=== PATIENT | female | born 1965 | race Caucasian/White ===

== ENCOUNTER 2019-12-05 19:46 | Emergency (ER) | payer SELFPAY ==
--- OUTSIDE RECORDS SUMMARY | 2019-12-05 19:49 | XMS REPORT | Continuity of Care Document ---
:1965 Author Organization [facility] t Address [address] [place] [id number] Care Team Providers Name Role Phone Garret Echevarria Attending Clinician Problems This patient has no known problems. Allergies, Adverse Reactions, Alerts This patient has no known allergies or adverse reactions. Medications This patient has no known medications. Procedures This patient has no known procedures. Encounters Start End Encounter Admission Attending Care Care Encounter Source Date/Time Date/Time Type Type Clinicians Facility Department ID 2019-10-31 2019-10-31 Emergency Joan [facility] [id number] 15:50:46 17:30:00 Terell Manzanares [id number] [place] [id number] [place] [id number] Results This patient has no known results.
--- OUTSIDE RECORDS SUMMARY | 2019-12-05 19:49 | XMS REPORT | Summary of Care ---
:1965 Author Organization [facility] Address [address] [place] [id number] Care Team Providers Name Role Phone Pcp, Does Not Have A Primary Care Provider Reason for Referral (Routine) Status Reason Specialty Diagnoses / Referred By Referred To Procedures Contact Contact New Request ORT-ORTHOPAEDIC Diagnoses Sprain of left shoulder, unspecified shoulder sprain type, initial encounter Terell Franco, SURGERY Procedures Discharge Follow-Up: Specialty Service ORT-ORTHOPAEDIC SURGERY; 1 Week DEMO COORDINATOR [address] [place] [address] Radiology Services (STAT) Status Reason Specialty Diagnoses / Referred By Referred To Procedures Contact Contact New Request Diagnostic Diagnoses Fall, initial encounter Terell Franco, Radiology Procedures XR SHOULDER 2+ VW LEFT DEMO COORDINATOR [address] [place] [address] Reason for Visit Reason Comments Shoulder Pain left Auth/Cert Status Reason Specialty Diagnoses / Referred By Referred To Procedures Contact Contact Emergency Medicine Adc Em ergency Dept [address] [facility] [place] [address] Fax: Encounter Details Date Type Department Care Team Description 10/31/2019 Emergency ADC-Emergency Terell Franco , DEMO COORDINATOR Sprain of left shoulder, unspecified gee ulder sprain type, initial encounter (Primary Dx); Department [address] [facility] Fall, initial encounter [address] [facility] [address] [place], [place] [phone] Allergies No Known Allergiesdocumented as of this encounter (statuses as of 10/31/2019) Medications No known medicationsdocumented as of this encounter (statuses as of 10/31/2019) Active Problems No known active problemsdocumented as of this encounter (statuses as of 10/31/2019) Social History Tobacco Use Types Packs/Day Years Used Date Never Assessed Sex Assigned at Date Recorded Not on file Job Start Date Occupation Industry Not on file Not on file Not on file Travel History Travel Start Travel End No recent travel history available. COVID-19 Exposure Response Date Recorded In the last month, have you been in contact with No / Unsure 10/31/2019 3:42 PM CDT someone who was confirmed or suspected to have Coronavirus / COVID-19? documented as of this encounter Last Filed Vital Signs Vital Sign Reading Time Taken Comments Blood Pressure 152/72 10/31/2019 3:48 PM CDT Pulse 73 10/31/2019 3:48 PM CDT Temperature 37.1 C (98.8 F) 10/31/2019 3:48 PM CDT Respiratory Rate 18 10/31/2019 3:48 PM CDT Oxygen Saturation 98% 10/31/2019 3:48 PM CDT Inhaled Oxygen Concentration - - Weight 81.6 kg (180 lb) 10/31/2019 3:48 PM CDT Height 160 cm (5' 3") 10/31/2019 3:48 PM CDT Body Mass Index 31.89 10/31/2019 3:48 PM CDT documented in this encounter Discharge Instructions InstructionsTerell Franco, DEMO COORDINATOR - 10/31/2019DIAGNOSIS 1. Shoulder Pain NO LIFE-THREATENING FINDINGS ON TODAY'S EXAM. RECOMMEND FOLLOW-UP WITH A PRIMARY CARE PROVIDER OR SPECIALIST IN 2-5 DAYS, ESPECIALLY IF NO IMPROVEMENT IN SYMPTOMS. MAY FOLLOW-UP WITH A PROVIDER OF YOUR CHOICE, SUCH : 1. A PHYSICIAN OF YOUR CHOICE 2. [address] [place] [address]; [phone] 3. [facility], [address] [place] [address]; [phone] OR, IF YOU WISH TO FOLLOW-UP WITHIN THE [facility], MAY TRY THESE OPTIONS (CLINIC APPOINTMENTS AVAILABLE ON [id number] BASIS): 1. SCHEDULE AN APPOINTMENT ONLINE AT [facility] 2. OR CALL THE [facility] AT OR 3. OR CALL YOUR [facility] PHYSICIAN'S OFFICE DIRECTLY IF YOU ARE ALREADY AN ESTABLISHED [facility] PATIENT. RETURN TO ER FOR WORSENING OF SYMPTOMS. AttachmentsThe following attachments cannot be sent through Care Everywhere. Shoulder Sprain ([place])documented in this encounter Plan of Treatment Name Type Priority Associated Diagnoses Date/Ti me XR SHOULDER 2+ VW LEFT IMAGING STAT Fall, initial enco unter 10/31/2019 4:19 PM CDT Health Maintenance Due Date Last Done Comments HEPATITIS C (HCV) SCREEN 1965 DTaP,Tdap,and Td Vaccines (1 - 1974 Tdap) PAP SMEAR 1984 Breast Cancer Screening 2003 (MAMMOGRAM) COLONOSCOPY 2013 Zoster Recombinant Vaccine 2013 (SHINGRIX) (1 of 2) INFLUENZA VACCINE (Season Ended) 2020 PNEUMOCOCCAL 0-64 YEARS COMBINED Aged Out No longer eligible based on SERIES patient's age to complete this topic documented as of this encounter Procedures Procedure Name Priority Date/Time Associated Diagnosis Comme nts XR SHOULDER 2+ VW LEFT STAT 10/31/2019 4:19 PM Fall, initi al encounter CDT Procedure Note - [facility], [place] Results Inft User - 10/31/2019 5:12 PM CDT EXAM: XR SHOULDER 2+ VW LEFT HISTORY: fall COMPARISON: None FINDINGS: Radiographs of the left shou lder demonstrate no acute fracture or dislocation. Alignment is ma intained. The soft tissues are unremarkable. The visualized lungs are yusef ar. IMPRESSION No acute bony abnormality. Preliminary Report Dictated by Resident: Maximo Sullivan documented in this encounter Results Not on filedocumented in this encounter Visit Diagnoses Diagnosis Sprain of left shoulder, unspecified gee ulder sprain type, initial encounter - Primary Fall, initial encounter documented in this encounter documented as of this encounter
[2019-12-05 21:10] LABS: Absolute Lymphocytes (CBC) 1.9 K/uL (0.7-4.9); Basophils % 1.2 % (0-1.3); Hematocrit 38.1 % (36.0-45.0); Lymphocytes % 29.2 % (15.3-44.8); MPV 9.5 fL (7.6-11.3); RBC Red Blood Cell Count 4.35 M/uL (3.86-4.86)
[2019-12-05 21:11] LABS: Barbiturates NEGATIVE (NEGATIVE); Benzodiazepines NEGATIVE (NEGATIVE); Cocaine NEGATIVE (NEGATIVE); METHAMPHETAM NEGATIVE (NEGATIVE); Methadone NEGATIVE (NEGATIVE); Opiates NEGATIVE (NEGATIVE); Phencyclidine NEGATIVE (NEGATIVE); THC Cannibis NEGATIVE (NEGATIVE)
[2019-12-05 21:19] LABS: ALT/SGPT 27 U/L (12-78); AST/SGOT 24 U/L (15-37); Albumin 3.4 g/dL (3.4-5.0); Alkaline Phosphatase 95 U/L (45-117); BUN Blood Urea Nitrogen 13 mg/dL (7-18); Bicarbonate 27 mmol/L (21-32); Bilirubin Direct < 0.1 mg/dL (0-0.2); Bilirubin Total 0.2 mg/dL (0.2-1.0); Glucose Level 93 mg/dL (74-106); Potassium 3.5 mmol/L (3.5-5.1); Protein, Total 7.4 g/dL (6.4-8.2); Sodium Level 142 mmol/L (136-145)
[2019-12-05] MEDS ORDERED: ACETAMINOPHEN 500 MG TAB ONE (21:27)
[2019-12-05] MEDS ORDERED: NA CHLORIDE 0.9% 1,000 ML ONE (22:21)
[2019-12-05 23:31] LABS: Urine Blood NEGATIVE (NEG); Urine Glucose NEGATIVE (NEG); Urine Protein NEGATIVE (NEG); Urine Specific Gravity >1.030 (1.005-1.030); Urine pH 5.5 (5.0-7.0)
--- NOTE | 2019-12-05 23:31 | EDPHYS ---
Physician Documentation [facility] Name: Tammy Dutta Age: 54 yrs Sex: Female : 1965 Arrival Date: 12/05/2019 Time: 19:51 Bed 13 Private MD: ED Physician Miquel Dietrich HPI: 12/04 20:31 This 54 yrs old Female presents to ER via Ambulatory with complaints of Back mh7 Pain,. 20:31 The patient presents with pain that is acute, with no known mechanism of injury. The mh7 symptoms are located in the low back. Onset: The symptoms/episode began/occurred 3 day(s) ago. The pain does not radiate. Associated signs and symptoms: Pertinent negatives: abdominal pain, chest pain, constipation, dysuria, fever, headache, hematuria, incontinence, nausea, numbness, tingling, urinary retention, vomiting, weakness. The problem was sustained from unknown cause. Modifying factors: The patient symptoms are alleviated by OTC meds, aspirin, the patient symptoms are aggravated by nothing. Severity of symptoms: At their worst the symptoms were moderate, yesterday, in the emergency department the symptoms have improved, moderately. Historical: - Allergies: 20:03 No Known Allergies; ll1 - PSHx: 20:03 Tubal ligation; ll1 - Immunization history:: Flu vaccine is not up to date. - Social history:: Smoking status: Patient denies any tobacco usage or history of. Patient uses alcohol, only on a social basis. Patient/guardian denies using street drugs. ROS: 20:31 Constitutional: Negative for fever, chills, and weight loss, Eyes: Negative for injury, mh7 pain, redness, and discharge, ENT: Negative for injury, pain, and discharge, Neck: Negative for injury, pain, and swelling, Cardiovascular: Negative for chest pain, palpitations, and edema, Respiratory: Negative for shortness of breath, cough, wheezing, and pleuritic chest pain, Abdomen/GI: Negative for abdominal pain, nausea, vomiting, diarrhea, and constipation, : Negative for injury, bleeding, discharge, and swelling, MS/Extremity: Negative for injury and deformity, Skin: Negative for injury, rash, and discoloration, Neuro: Negative for headache, weakness, numbness, tingling, and seizure, Psych: Negative for depression, anxiety, suicide ideation, homicidal ideation, and hallucinations, Allergy/Immunology: Negative for hives, rash, and allergies, Endocrine: Negative for neck swelling, polydipsia, polyuria, polyphagia, and marked weight changes, Hematologic/Lymphatic: Negative for swollen nodes, abnormal bleeding, and unusual bruising. Exam: 20:31 Constitutional: This is a well developed, well nourished patient who is awake, alert, mh7 and in no acute distress. Head/Face: Normocephalic, atraumatic. Eyes: Pupils equal round and reactive to light, extra-ocular motions intact. Lids and lashes normal. Conjunctiva and sclera are non-icteric and not injected. Cornea within normal limits. Periorbital areas with no swelling, redness, or edema. Neck: Trachea midline, no thyromegaly or masses palpated, and no cervical lymphadenopathy. Supple, full range of motion without nuchal rigidity, or vertebral point tenderness. No Meningismus. Chest/axilla: Normal chest wall appearance and motion. Nontender with no deformity. No lesions are appreciated. Cardiovascular: Regular rate and rhythm with a normal S1 and S2. No gallops, murmurs, or rubs. Normal PMI, no JVD. No pulse deficits. Respiratory: Lungs have equal breath sounds bilaterally, clear to auscultation and percussion. No rales, rhonchi or wheezes noted. No increased work of breathing, no retractions or nasal flaring. Abdomen/GI: Soft, non-tender, with normal bowel sounds. No distension or tympany. No guarding or rebound. No evidence of tenderness throughout. 20:31 Skin: Warm, dry with normal turgor. Normal color with no rashes, no lesions, and no evidence of cellulitis. MS/ Extremity: Pulses equal, no cyanosis. Neurovascular intact. Full, normal range of motion. Neuro: Awake and alert, GCS 15, oriented to person, place, time, and situation. Cranial nerves II-XII grossly intact. Motor strength 5/5 in all extremities. Sensory grossly intact. Cerebellar exam normal. Normal gait. Psych: Awake, alert, with orientation to person, place and time. Behavior, mood, and affect are within normal limits. 20:31 Back: pain, that is mild, of the left mid back, ROM is painless, normal spinal alignment noted, CVA tenderness, that is mild, is noted on the left, vertebral tenderness, is not appreciated, muscle spasm, is not present, Straight leg raises: of both lower extremities does not illicit pain. Vital Signs: 19:59 BP 131 / 78; Pulse 73; Resp 17; Temp 97.9; Pulse Ox 100% ; Pain 0/10; ll1 21:00 BP 127 / 68; Pulse 55; Resp 17; Pulse Ox 99% on R/A; vc 22:00 BP 123 / 68; Pulse 53; Resp 18; Pulse Ox 100% on R/A; vc 12/05 00:00 BP 122 / 68; Pulse 56; Resp 18; Pulse Ox 100% on R/A; vc MDM: 12/04 20:29 Patient medically screened. [facility] 23:27 Differential diagnosis: Abdominal Aortic Aneurysm arthritis, chronic back pain, [facility] Osteoarthritis Pyelonephritis Ureterolithiasis UTI. Data reviewed: vital signs, nurses notes, lab test result(s), CBC, electrolytes, urinalysis, radiologic studies, CT scan. Data interpreted: Pulse oximetry: on room air is 100 %. Interpretation: normal. Counseling: I had a detailed discussion with the patient and/or guardian regarding: the historical points, exam findings, and any diagnostic results supporting the discharge/admit diagnosis, lab results, radiology results, the need for outpatient follow up, to return to the emergency department if symptoms worsen or persist or if there are any questions or concerns that arise at home. Response to treatment: the patient's symptoms have markedly improved after treatment. 12/04 20:30 Order name: Basic Metabolic Panel; Complete Time: 21:23 [facility] 12/04 21:57 Interpretation: GFR 74. [facility] 12/04 20:30 Order name: CBC with Diff; Complete Time: 21:23 [facility] 12/04 20:30 Order name: Hepatic Function; Complete Time: 21:23 [facility] 12/04 20:30 Order name: UDS; Complete Time: 21:23 [facility] 12/04 20:58 Order name: Urine Dipstick--Ancillary (enter results) 3 12/04 21:57 Order name: CT Abd/Pelvis - Without Contrast [facility] 12/04 20:30 Order name: IV Saline Lock; Complete Time: 20:46 [facility] 12/04 20:30 Order name: Labs collected and sent; Complete Time: 20:47 [facility] 12/04 20:30 Order name: Urine Dipstick-Ancillary (obtain specimen); Complete Time: 20:58 mh7 Administered Medications: 21:22 Drug: Tylenol 1000 mg Route: PO; vc 21:51 Follow up: Response: No adverse reaction vc 22:18 Drug: NS 0.9% 1000 ml Route: IV; Rate: 1000 ml; Site: left antecubital; vc Disposition: 12/05/19 23:30 Discharged to Home. Impression: Back Pain. - Condition is Stable. - Discharge Instructions: Back Pain, Adult, [id number]. - Prescriptions for Robaxin 500 mg Oral Tablet - take 2 tablet by ORAL route every 6 hours As needed; 40 tablet. Tramadol 50 mg Oral Tablet - take 1 tablet by ORAL route every 8 hours as needed; 12 tablet. - Medication Reconciliation Form, Thank You Letter, Antibiotic Education, Prescription Opioid Use form. - Follow up: Private Physician; When: 1 - 2 days; Reason: Worsening of condition, Recheck today's complaints, Re-evaluation by your physician. - Problem is new. - Symptoms have improved. Signatures: Dispatcher [employer] EDMS Pattie Gutiérrez RN RN vc Lewis, Lynsay, RN RN 1 Miquel Dietrich MD MD mh7 Corrections: (The following items were deleted from the chart) 12/05 01:08 12/04 23:30 12/05/2019 23:30 Discharged to Home. Impression: Back Pain. Condition is vc Stable. Forms are Medication Reconciliation Form, Thank You Letter, Antibiotic Education, Prescription Opioid Use. Follow up: Private Physician; When: 1 - 2 days; Reason: Worsening of condition, Recheck today's complaints, Re-evaluation by your physician. Problem is new. Symptoms have improved. [facility]
--- NOTE | 2019-12-05 23:31 | ER ---
Nurse's Notes [facility] Name: Tammy Dutta Age: 54 yrs Sex: Female : 1965 Arrival Date: 12/05/2019 Time: 19:51 Bed 13 Private MD: Diagnosis: Back Pain Presentation: 12/04 19:59 Chief complaint: Patient states: Low back pain and spasms for 3 days, takes aspirin ll1 with caffeine and it helps. Generalized dizziness started today. No fevers. Coronavirus screen: Proceed with normal triage. Patient denies a cough. Patient denies shortness of breath or difficulty breathing. Patient denies measured and/or subjective temperature greater than 100.4F prior to today's visit. Patient denies travel on a cruise ship or to a country the [facility] currently lists as an affected area. Patient denies contact with known and/or suspected case of COVID-19. Ebola Screen: Patient denies travel to an Ebola-affected area in the 21 days before illness onset. Initial Sepsis Screen: Does the patient meet any 2 criteria? No. Patient's initial sepsis screen is negative. Does the patient have a suspected source of infection? No. Patient's initial sepsis screen is negative. Risk Assessment: Do you want to hurt yourself or someone else? Patient reports no desire to harm self or others. Onset of symptoms was December 03, 2019. 19:59 Method Of Arrival: Ambulatory 1 19:59 Acuity: WILLIAM 3 ll1 Triage Assessment: 20:15 General: Behavior is calm. Musculoskeletal: Circulation, motion, and sensation intact. vc Range of motion: intact in all extremities. Historical: - Allergies: 20:03 No Known Allergies; ll1 - PSHx: 20:03 Tubal ligation; ll1 - Immunization history:: Flu vaccine is not up to date. - Social history:: Smoking status: Patient denies any tobacco usage or history of. Patient uses alcohol, only on a social basis. Patient/guardian denies using street drugs. Screenin:15 Abuse screen: Denies threats or abuse. Nutritional screening: No deficits noted. vc Tuberculosis screening: No symptoms or risk factors identified. Fall Risk None identified. Assessment: 12/03 20:15 General: Appears in no apparent distress. uncomfortable. vc 20:15 Pain: Complains of pain in left mid back Pain does not radiate. Pain currently is 4 out vc of 10 on a pain scale. at worst was 10 out of 10 on a pain scale. Quality of pain is described as sharp, stabbing, throbbing. Neuro: Level of Consciousness is awake, alert, obeys commands, Oriented to person, place, time, situation, Appropriate for age. Cardiovascular: Capillary refill < 3 seconds Patient's skin is warm and dry. Respiratory: Airway is patent Respiratory effort is even, unlabored, Respiratory pattern is regular, symmetrical. GI: No signs and/or symptoms were reported involving the gastrointestinal system. : No signs and/or symptoms were reported regarding the genitourinary system. Derm: Skin is intact, is healthy with good turgor. Musculoskeletal: Circulation, motion, and sensation intact. Range of motion: intact in all extremities. 12/04 21:15 Reassessment: Patient appears in no apparent distress at this time. Patient and/or vc family updated on plan of care and expected duration. Pain level reassessed. Patient is alert, oriented x 3, equal unlabored respirations, skin warm/dry/pink. 22:05 Reassessment: Patient appears in no apparent distress at this time. Patient and/or vc family updated on plan of care and expected duration. Pain level reassessed. Patient is alert, oriented x 3, equal unlabored respirations, skin warm/dry/pink. 23:00 Reassessment: Patient appears in no apparent distress at this time. Patient and/or vc family updated on plan of care and expected duration. Pain level reassessed. Patient is alert, oriented x 3, equal unlabored respirations, skin warm/dry/pink. Patient states symptoms have not improved. 12/05 00:00 Reassessment: Patient appears in no apparent distress at this time. Patient and/or vc family updated on plan of care and expected duration. Pain level reassessed. Patient is alert, oriented x 3, equal unlabored respirations, skin warm/dry/pink. 00:33 Reassessment: Patient appears in no apparent distress at this time. Patient and/or vc family updated on plan of care and expected duration. Pain level reassessed. Patient is alert, oriented x 3, equal unlabored respirations, skin warm/dry/pink. Vital Signs: 12/04 19:59 BP 131 / 78; Pulse 73; Resp 17; Temp 97.9; Pulse Ox 100% ; Pain 0/10; ll1 21:00 BP 127 / 68; Pulse 55; Resp 17; Pulse Ox 99% on R/A; vc 22:00 BP 123 / 68; Pulse 53; Resp 18; Pulse Ox 100% on R/A; vc 12/05 00:00 BP 122 / 68; Pulse 56; Resp 18; Pulse Ox 100% on R/A; vc ED Course: 12/04 19:51 Patient arrived in ED. cf2 20:02 Triage completed. ll1 20:03 Arm band placed on Patient placed in an exam room, on a stretcher. ll1 20:11 Miquel Dietrich MD is Attending Physician. 7 20:15 Patient has correct armband on for positive identification. Placed in gown. Bed in low vc position. Call light in reach. Side rails up X2. Pulse ox on. NIBP on. 20:31 Pattie Gutiérrez RN is Primary Nurse. vc 22:54 CT Abd/Pelvis - Without Contrast In Process Unspecified. EDMS 12/05 00:55 No provider procedures requiring assistance completed. IV discontinued, intact, vc bleeding controlled, No redness/swelling at site. Pressure dressing applied. Administered Medications: 12/04 21:22 Drug: Tylenol 1000 mg Route: PO; vc 21:51 Follow up: Response: No adverse reaction vc 22:18 Drug: NS 0.9% 1000 ml Route: IV; Rate: 1000 ml; Site: left antecubital; vc Outcome: 23:30 Discharge ordered by . [facility] 12/05 00:55 Patient left the ED. vc 00:55 Discharged to home ambulatory. vc 00:55 Condition: good 00:55 Discharge instructions given to patient, Instructed on discharge instructions, follow up and referral plans. medication usage, Demonstrated understanding of instructions, follow-up care, medications, Prescriptions given X 2. Signatures: Dispatcher [employer] EDKY Alesha Nieves 2 Pattie Gutiérrez, Sherry Molina RN, vc, RN RN 1 Miquel Dietrich MD MD [facility] Corrections: (The following items were deleted from the chart) 02:32 01:08 Patient left the ED. vc vc
--- NOTE | 2019-12-06 10:33 | RAD REPORT ---
EXAM DESCRIPTION: CT - Abdomen Pelvis Wo Contrast - 12/06/2019 6:16 am CLINICAL HISTORY: The patient is 54 years old and is Female; FLANK PAIN TECHNIQUE: Axial computed tomography images of the abdomen and pelvis without intravenous contrast. Sagittal and coronal reformatted images were created and reviewed. This CT exam was performed usi ng one or more of the following dose reduction techniques: automated exposure control, adjustment o f the mA and/or kV according to patient size, and/or use of iterative reconstruction technique. COMPARISON: No relevant prior studies available. FINDINGS: LUNG BASES: Unremarkable. No mass. No consolidation. ABDOMEN: LIVER: Homogeneous without focal mass. GALLBLADDER AND BILE DUCTS: The gallbladder is contracted. There is no ductal dilatation. No brian cified gallstones are seen. PANCREAS: Unremarkable. No ductal dilation. SPLEEN: Unremarkable. ADRENALS: Unremarkable. No mass. KIDNEYS AND URETERS: No obstructing stones. No hydronephrosis. No perinephric fluid. STOMACH AND BOWEL: The stomach is minimally distended with food contents. The small bowel is nor mal in caliber. Stool is present throughout colon. A few scattered colonic diverticula are noted with out surrounding inflammation. There is no bowel obstruction. PELVIS: APPENDIX: The appendix is normal in caliber without surrounding inflammation. BLADDER: The bladder is incompletely distended. No stones. REPRODUCTIVE: Unremarkable as visualized. ABDOMEN and PELVIS: INTRAPERITONEAL SPACE: Unremarkable. No free air. No significant fluid collection. BONES/JOINTS: Minimal degenerative change at L5-S1 is present. SOFT TISSUES: Images of the right breast is noted. VASCULATURE: Unremarkable. No abdominal aortic aneurysm. LYMPH NODES: Unremarkable. No enlarged lymph nodes. IMPRESSION: No acute findings on this noncontrasted CT of the abdomen and pelvis to explain the hilda ent's symptoms. Electronically signed by: Gianna Hudson MD 12/05/2019 11:01 PM CDT Due to temporary technical issues with the PACS/Fluency reporting system, reports are being signed by the in house radiologist without review as a courtesy to ensure prompt reporting. The interpreting r adiologist is fully responsible for the content of the report.
== END 2019-12-06 01:08 | disposition home or self-care (01) ==
LOC: ER 19:46
DX: M54.9 Dorsalgia, unspecified (principal)
CPT/HCPCS: 36415; 74176; 80048; 80076; 80307; 81003; 85025; 99284; J7030

== ENCOUNTER 2025-03-11 08:31 | Emergency (ER) | payer OTHER, SELFPAY ==
--- OUTSIDE RECORDS SUMMARY | 2025-03-11 08:36 | XMS REPORT | Continuity of Care Document ---
Author Name Unknown Address [address] [facility] [place] [address] [facility] Address [address] [facility] [address] [place] [address] Care Team Providers Care Account Receivable Associate Name Role Phone PCP, PATIENT DOES NOT HAVE A Primary Care Physic deniz Unavailable Reynaldo Echevarria Attending Clinician [phone] REYNALDO RESTREPO Attending Clinician Unavailable REYNALDO RESTREPO Admitting Clinician Unavailable Payers Payer Name Policy Type Policy Number Effective Date Expirati on Date Source Problems Condition Name Condition Details Condition Category Status Onset Date Resolution Date Last Treatment Date Treating Clinician Comments Source No known active problems No known active problems Disease [facility] Allergies, Adverse Reactions, Alerts Allergy Name Allergy Type Status Severity Reaction(s) Onset Date Inactive Date Treating Clinician Comments Source NO KNOWN ALLERGIE S Drug Class Active [facility] Social History Social Habit Start Date Stop Date Quantity Comments Source Sex Assigned At [facility] Exposure to SARS-CoV-2 (event) Not sure [facility] Smoking Status Start Date Stop Date Source Unknown if ever smoked [facility] Medications Ordered Medication Name Filled Medication Name Start Date Stop Date Current Medication? Ordering Clinician Indication Dosage Frequency Signature (SIG) Comments Components Source Bromfed DM 2 mg-30 mg-10 mg/5 mL oral syrup 2024-06 0-01 00:00: 00 Yes 10mg/5 mL Maximo Grady amoxicillin 875 mg-potassiu m clavulanate 125 mg tablet 9-08 00:00: 00 Yes 1mg Maximo Grady chlorhexidi ne gluconate 0.12 % mouthwash 02-13 00:00: 00 Yes % Maximo Grady Zithromax 250 mg tablet 2023-06 00:00: 00 Yes 12mg Maximo Grady omeprazole 20 mg capsule,del ayed release 2023-06 006 00:00: 00 Yes 1mg Maximo Grady BROM/PSE/DM SYP 2022-06 0 00:00: 00 Yes Maximo Grady TAKE 10 ML EVERY 4 HOURS NEEDED 2022-06 0 00:00: 00 09-21 00:00 :00 No [id number] Maximo Grady mupirocin 2 % topical ointment 06-26 00:00: 00 Yes 1% Maximo Grady doxycycline hyclate 100 mg tablet 06-26 00:00: 00 Yes 1mg Maximo Grady amoxicillin 500 mg tablet 03-06 00:00: 00 Yes 1mg Maximo Grady No known medications No Un kel[facility] Immunizations Ordered Immunization Name Filled Immunization Name Date Status Comments Source Influenza, seasonal, inj Influenza, seasonal, inj 2017-06-26 00:00:00 Completed Maximo Ellis Miguel A Td (adult) preservative Td (adult) preservative 2017-06-26 00:00:00 Completed Maximo Ellis Miguel A Vital Signs Vital Name Observation Time Observation Value Comments S ource Diastolic blood pressure 2019-10-31 20:48:00 72 mm[Hg] [facility] Heart rate 2019-10-31 20:48:00 73 /min [facility] Body temperature 2019-10-31 20:48:00 37.11 Lani [facility] Respiratory rate 2019-10-31 20:48:00 18 /min [facility] Body height 2019-10-31 20:48:00 160 cm [facility] Body weight 2019-10-31 20:48:00 81.647 kg [facility] BMI 2019-10-31 20:48:00 31.89 kg/m2 [facility] Oxygen saturation in Arterial blood by Pulse oximetry 2019-10-31 20:48:00 98 /min [facility] Systolic blood pressure 2019-10-31 20:48:00 152 mm[Hg] [facility] Diastolic blood pressure 2019-10-31 20:48:00 72 mm[Hg] [facility] Heart rate 2019-10-31 20:48:00 73 /min [facility] Body temperature 2019-10-31 20:48:00 37.11 Lani [facility] Respiratory rate 2019-10-31 20:48:00 18 /min [facility] Body height 2019-10-31 20:48:00 160 cm [facility] Body weight 2019-10-31 20:48:00 81.647 kg [facility] BMI 2019-10-31 20:48:00 31.89 kg/m2 [facility] Oxygen saturation in Arterial blood by Pulse oximetry 2019-10-31 20:48:00 98 /min [facility] Systolic blood pressure 2019-10-31 20:48:00 152 mm[Hg] [facility] BP Systolic 2025-03-08 11:36:00 144 mm[Hg] Step hen F Benge BP Diastolic 2025-03-08 11:36:00 88 mm[Hg] Cu[place] phen F Miguel A Weight Measured 2025-03-08 11:36:00 181.60 pounds Maximo F Miguel A Height Measured 2025-03-08 11:36:00 63.00 inches Maximo F Benge Body Temperature 2025-03-08 11:36:00 98.50 degrees Maximo F Miguel A Heart Rate 2025-03-08 11:36:00 80.00 /min Tiffany en F Miguel A Respiratory Rate 2025-03-08 11:36:00 18.00 /min Maximo F Miguel A BP Systolic 2025-02-13 15:56:00 115 mm[Hg] Step hen F Miguel A BP Diastolic 2025-02-13 15:56:00 67 mm[Hg] Cu[place] phen F Miguel A Weight Measured 2025-02-13 15:56:00 186.40 pounds Maximo F Miguel A Height Measured 2025-02-13 15:56:00 63.00 inches Maximo F Miguel A Body Temperature 2025-02-13 15:56:00 98.50 degrees Maximo F Miguel A Heart Rate 2025-02-13 15:56:00 79.00 /min Tiffany en F Miguel A Respiratory Rate 2025-02-13 15:56:00 18.00 /min Maximo F Miguel A BP Systolic 2024-05-23 10:26:00 130 mm[Hg] Step hen F Miguel A BP Diastolic 2024-05-23 10:26:00 83 mm[Hg] Cuong phen F Miguel A Weight Measured 2024-05-23 10:26:00 185.60 pounds Maximo F Miguel A Height Measured 2024-05-23 10:26:00 63.00 inches Maximo F Miguel A Body Temperature 2024-05-23 10:26:00 98.10 degrees Maximo F Miguel A Heart Rate 2024-05-23 10:26:00 72.00 /min Tiffany en F Miguel A Respiratory Rate 2024-05-23 10:26:00 18.00 /min Maximo F Miguel A Respiratory Rate 2024-03-10 15:17:00 18.00 /min Maximo F Miguel A BP Systolic 2024-03-10 15:17:00 151 mm[Hg] Step hen F Miguel A BP Diastolic 2024-03-10 15:17:00 72 mm[Hg] Cu[place] phen F Miguel A Weight Measured 2024-03-10 15:17:00 189.40 pounds Maximo F Miguel A Height Measured 2024-03-10 15:17:00 63.00 inches Maximo F Miguel A Body Temperature 2024-03-10 15:17:00 98.30 degrees Maximo F Miguel A Heart Rate 2024-03-10 15:17:00 81.00 /min Tiffany en F Miguel A BP Systolic 2023-03-16 16:42:00 131 mm[Hg] Step hen F Miguel A BP Diastolic 2023-03-16 16:42:00 72 mm[Hg] Cu[place] phen F Miguel A Weight Measured 2023-03-16 16:42:00 192.40 pounds Maximo F Miguel A Height Measured 2023-03-16 16:42:00 63.00 inches Maximo F Miguel A Body Temperature 2023-03-16 16:42:00 97.40 degrees Maximo F Miguel A Heart Rate 2023-03-16 16:42:00 78.00 /min Tiffany en F Miguel A Respiratory Rate 2023-03-16 16:42:00 Maximo F Miguel A Weight Measured 2017-06-26 08:33:00 175.00 pounds Maximo F Miguel A Height Measured 2017-06-26 08:33:00 63.00 inches Maximo F Miguel A Body Temperature 2017-06-26 08:33:00 98.10 degrees Maximo F Miguel A Heart Rate 2017-06-26 08:33:00 79.00 /min Tiffany en F Miguel A Respiratory Rate 2017-06-26 08:33:00 20.00 /min Maximo F Miguel A BP Systolic 2017-06-26 08:33:00 148 mm[Hg] Step hen F Miguel A BP Diastolic 2017-06-26 08:33:00 88 mm[Hg] Cu[place] phen F Miguel A BP Systolic 2017-03-12 08:58:00 152 mm[Hg] Step hen F Miguel A BP Diastolic 2017-03-12 08:58:00 90 mm[Hg] Cu[place] phen F Miguel A Weight Measured 2017-03-12 08:58:00 175.00 pounds Maximo F Miguel A Height Measured 2017-03-12 08:58:00 63.00 inches Maximo F Miguel A Body Temperature 2017-03-12 08:58:00 97.30 degrees Maximo F Miguel A Heart Rate 2017-03-12 08:58:00 88.00 /min Tiffany en F Miguel A Respiratory Rate 2017-03-12 08:58:00 20.00 /min Maximo F Miguel A BP Systolic 2017-03-06 13:12:00 135 mm[Hg] Step hen F Miguel A BP Diastolic 2017-03-06 13:12:00 87 mm[Hg] Cu[place] phen F Miguel A Weight Measured 2017-03-06 13:12:00 175.00 pounds Maximo F Miguel A Height Measured 2017-03-06 13:12:00 63.00 inches Maximo F Miguel A Body Temperature 2017-03-06 13:12:00 98.00 degrees Maximo F Miguel A Heart Rate 2017-03-06 13:12:00 73.00 /min Tiffany en F Miguel A Respiratory Rate 2017-03-06 13:12:00 18.00 /min Maximo F Miguel A Procedures Procedure Date / Time Performed Performing Clinicia n Source XR SHOULDER 2+ VW LEFT 2019-10-31 21:19:56 Reynaldo Restrepo [facility] Encounters Start Date/Time End Date/Time Encounter Type Admission Type Attending [facility] Care Department Encounter ID Source 2025-03-08 11:27:13 2025-03-08 11:27:13 Outpatient S[facility] [id number] Maximo Grady 2025-03-08 00:00:00 2025-03-08 00:00:00 Outpatient Visit SFA [id number] Maximo Grady 2025-02-13 15:50:50 2025-02-13 15:50:50 Outpatient S[facility] [id number] Maximo Grady 2025-02-13 00:00:00 2025-02-13 00:00:00 Outpatient Visit [facility] [id number] Maximo Grady 2024-05-23 10:13:35 2024-05-23 10:13:35 Outpatient S[facility] [id number] Maximo Grady 2024-05-23 00:00:00 2024-05-23 00:00:00 Outpatient Visit [facility] [id number] Maximo Grady 2024-03-10 15:06:07 2024-03-10 15:06:07 Outpatient [facility] [id number] Maximo Grady 2024-03-10 00:00:00 2024-03-10 00:00:00 Outpatient Visit [facility] [id number] Maximo Grady 2019-10-31 15:50:46 2019-10-31 17:30:00 Emergency Reynaldo Restrepo [facility] [id number] [facility] 2019-10-31 15:50:46 2019-10-31 17:30:00 Emergency X REYNALDO RESTREPO [facility] ERT [id number] [facility] 2019-10-31 15:50:46 2019-10-31 17:30:00 Emergency Reynaldo Restrepo [facility] [id number] Results Test Description Test Time Test Comments Results Result Co mments Source Maximo GradyH. PYLORI (BREATH)2024-03-12 14:56:24* Test Item Value Reference Range Interpretation Comme nts H. PYLORI (BREATH) (test code = 41164) NEGATIVE NEGATIVE UNLESS OTHER MILLAN INDICATED, ALL TESTING PERFORMED AT [facility] [address] [place] [address] CLINICAL LABORATORY SCIENTIST: SUNIL SIMMONS M.D. CLIA NUMBER [id number] [facility] [place] [place]. [id number] H. PYLORI (BREATH)2024-03-12 00:00:00* Test Item Value Reference Range Interpretation Comme nts H. PYLORI (BREATH) (test cod e = 75053) NEGATIVE Maximo GradyH. PYLORI (BREATH)2024-03-12 00:00:00* Test Item Value Reference Range Interpretation Comme nts H. PYLORI (BREATH) (test cod e = 08261) NEGATIVE Maximo GradyH. PYLORI (BREATH)2024-03-12 00:00:00* Test Item Value Reference Range Interpretation Comme nts H. PYLORI (BREATH) (test cod e = 53791) NEGATIVE Maximo Grady Notes Date/Time Note [facility]2025-09-08 00:00:00 Maximo Maria A [facility]2024-12-16 00:00:00 [facility]2024-10-03 00:00:00 [facility]
--- NOTE | 2025-03-11 09:18 | RAD REPORT ---
Procedure: Chest Pa And Lat (2 Views) HISTORY: Cough COMPARISON: none FINDINGS: The lungs appear clear of acute infiltrate. No significant pleural effusion noted. The heart is normal size. IMPRESSION: No acute abnormality is displayed.
[2025-03-11 09:42] LABS: Influenza A Ag Negative; Influenza B Ag Negative; SARS-CoV-2 Antigen Rapid Res Negative (Negative)
--- NOTE | 2025-03-11 09:46 | EDPHYS ---
Physician Documentation [facility] Name: Tammy Dutta Age: 59 yrs Sex: Female : 1965 Arrival Date: 03/11/2025 Time: 08:31 Bed 18 Private MD: ED Physician Becca Vázquez HPI: 03/11 09:07 This 59 yrs old Female presents to ER via Ambulatory with complaints of General sb4 Weakness, Cough, Sinus Congestion. 09:07 . Patient reports painful cough, congestion, sinus pressure, sore throat for about a sb4 week now. She states that she did go to [facility] earlier this week and prescribed chlorhexidine mouthwash but that has not improved her symptoms. She reports subjective low-grade fever. Denies any nausea, vomiting, diarrhea. 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 Is otherwise healthy, denies any major medical history. Historical: - Allergies: 08:51 No Known Allergies; iw - Home Meds: 08:51 None [Active]; iw - PMHx: 08:51 None; iw - PSHx: 08:51 tubal; iw - Immunization history:: Adult Immunizations. - Infectious Disease History:: Denies. - Social history:: Smoking status: Patient denies any tobacco usage or history of. ROS: 09:07 Abdomen/GI: Negative for abdominal pain, nausea, vomiting, diarrhea, and constipation, sb4 09:07 Constitutional: Positive for body aches, chills, fatigue, fever, malaise, 09:07 ENT: Positive for sinus congestion, sinus pain, sore throat, 09:07 Respiratory: Positive for cough, 09:07 All other systems are negative, Exam: 09:07 Head/Face: Normocephalic, atraumatic. Eyes: Extra-ocular motions intact. Periorbital sb4 areas with no swelling, redness, or edema. Cardiovascular: Regular rate and rhythm with a normal S1 and S2. Respiratory: No increased work of breathing, no retractions or nasal flaring. Skin: Warm, dry with normal turgor. Normal color with no rashes, no lesions, and no evidence of cellulitis. 09:07 ENT: Mucous membranes moist. 09:07 Constitutional: The patient appears in no acute distress, alert, awake, 09:07 ENT: Posterior pharynx: Cobblestoning present, 09:07 Respiratory: Breath sounds: are clear throughout, Vital Signs: 08:48 BP 182 / 78; Pulse 92; Resp 19; Temp 98.9; Pulse Ox 98% on R/A; Weight 81.65 kg; Height iw 5 ft. 3 in. ; Pain 5/10; 10:29 BP 170 / 87; Pulse 87; Resp 16; Pulse Ox 97% on R/A; iw 08:48 Body Mass Index 31.89 (81.65 kg, 160.02 cm) iw 08:48 Pain Scale: Adult iw MDM: 08:40 Medical Screening Exam initiated sb4 09:09 Differential diagnosis: viral Infection, bacterial infection, URI, bronchitis, sb4 pneumonia sinusitis. 09:47 Data reviewed: vital signs, nurses notes, lab test result(s), radiologic studies, and sb4 as a result, I will discharge patient. Counseling: I had a detailed discussion with the patient and/or guardian regarding the historical points, exam findings, and any diagnostic results supporting the discharge/admit diagnosis, the presence of at least one elevated blood pressure reading (>120/80) during this emergency department visit, lab results, radiology results, the need for outpatient follow up, for definitive care, to return to the emergency department if symptoms worsen or persist or if there are any questions or concerns that arise at home. 03/11 08:46 Order name: COVID-19 Ag + Flu A+B Ag; Complete Time: 09:43 sb4 03/11 08:46 Order name: Group A Streptococcus Rapid; Complete Time: 09:15 sb4 03/11 09:17 Order name: Throat Culture EDNH 03/11 08:46 Order name: Chest Pa And Lat (2 Views) XRAY; Complete Time: 09:27 sb4 Administered Medications: No medications were administered Disposition Summary: 03/11/25 09:46 Discharge Ordered Notes: Location: Home sb4 Problem: new sb4 Symptoms: have improved sb4 Condition: Stable sb4 Diagnosis - Acute upper respiratory infection, unspecified sb4 Followup: sb4 - With: Emergency Department - When: As needed - Reason: Trouble breathing, Worsening of condition Discharge Instructions: - Discharge Summary Sheet sb4 - Upper Respiratory Infection, Adult, [id number] sb4 Forms: - Work release form db - Antibiotic Education sb4 - Patient Portal Instructions sb4 - Leadership Thank You Letter sb4 Prescriptions: - Augmentin 875-125 mg Oral Tablet - take 1 tablet ORAL route every 12 hours for 10 days; 20 tablet; Refills: 0, sb4 Product Selection Permitted - Tessalon Perles 100 mg Oral Capsule - take 1 capsule ORAL route every 8 hours As needed; 15 capsule; Refills: 0, sb4 Product Selection Permitted - Prednisone 20 mg Oral Tablet - take 1 tablet ORAL route every 12 hours for 5 days; 10 tablet; Refills: 0, sb4 Product Selection Permitted Signatures: Dispatcher [employer] Leann Good RN RN Odilia Sorenson PA-C PA-C sb4
--- NOTE | 2025-03-11 09:46 | ER ---
Nurse's Notes [facility] Name: Tammy Dutta Age: 59 yrs Sex: Female : 1965 Arrival Date: 03/11/2025 Time: 08:31 Bed 18 Private MD: Diagnosis: Acute upper respiratory infection, unspecified Presentation: 03/11 08:48 Chief complaint: Patient states: cough, congestion, rib pain, fever, body aches X 1 iw week. Coronavirus screen: Client presents with at least one sign or symptom that may indicate coronavirus-19. Ebola Screen: No symptoms or risks identified at this time. Initial Sepsis Screen: Does the patient meet any 2 criteria? HR > 90 bpm. Does the patient have a suspected source of infection? No. Patient's initial sepsis screen is negative. Risk Assessment: Do you want to hurt yourself or someone else? Patient reports no desire to harm self or others. Onset of symptoms was March 05, 2025. 08:48 Method Of Arrival: Ambulatory iw 08:48 Acuity: WILLIAM 3 iw Triage Assessment: 10:31 General: Appears. db Historical: - Allergies: 08:51 No Known Allergies; iw - Home Meds: 08:51 None [Active]; iw - PMHx: 08:51 None; iw - PSHx: 08:51 tubal; iw - Immunization history:: Adult Immunizations. - Infectious Disease History:: Denies. - Social history:: Smoking status: Patient denies any tobacco usage or history of. Screenin:00 [facility] ED Fall Risk Assessment (Adult) History of falling in the last 3 months, db including since admission No falls in past 3 months (0 pts) Confusion or Disorientation No (0 pts) Intoxicated or Sedated No (0 pts) Impaired Gait No (0 pts) Mobility Assist Device Used No (0 pt) Altered Elimination No (0 pt) Score/Fall Risk Level 0 - 2 = Low Risk Oriented to surroundings, Maintained a safe environment. Abuse screen: Denies threats or abuse. Denies injuries from another. Nutritional screening: No deficits noted. Tuberculosis screening: No symptoms or risk factors identified. Assessment: 10:00 Reassessment: Patient appears in no apparent distress at this time. Patient and/or db family updated on plan of care and expected duration. Pain level reassessed. Patient is alert, oriented x 3, equal unlabored respirations, skin warm/dry/pink. General: Appears in no apparent distress. comfortable, Behavior is calm, cooperative. Pain: Denies pain. Neuro: Level of Consciousness is awake, alert, obeys commands, Oriented to person, place, time, situation. Vital Signs: 08:48 BP 182 / 78; Pulse 92; Resp 19; Temp 98.9; Pulse Ox 98% on R/A; Weight 81.65 kg; Height iw 5 ft. 3 in. ; Pain 5/10; 10:29 BP 170 / 87; Pulse 87; Resp 16; Pulse Ox 97% on R/A; iw 08:48 Body Mass Index 31.89 (81.65 kg, 160.02 cm) iw 08:48 Pain Scale: Adult iw ED Course: 08:36 Patient arrived in ED. ts1 08:36 Odilia Patel PA-C is PHCP. sb4 08:36 Becca Vázquez MD is Attending Physician. sb4 08:50 Triage completed. iw 08:52 Arm band placed on. iw 09:04 Ct Ureña, RN is Primary Nurse. db 09:04 Group A Streptococcus Rapid Sent. db 09:04 COVID-19 Ag + Flu A+B Ag Sent. db 09:15 Chest Pa And Lat (2 Views) XRAY In Process Unspecified. EDMS 10:00 Patient has correct armband on for positive identification. Provided Education on: db DISCHARGE AND FOLLOWUP. 10:00 No provider procedures requiring assistance completed. Patient did not have IV access db during this emergency room visit. Administered Medications: No medications were administered Medication: 10:00 VIS not applicable for this client. db Outcome: 09:46 Discharge ordered by . sb4 10:28 Discharged to home ambulatory, iw 10:28 Condition: good 10:28 Discharge instructions given to patient, Instructed on discharge instructions, follow up and referral plans. medication usage, Demonstrated understanding of instructions, follow-up care, medications, Prescriptions given X 3, 10:29 Patient left the ED. iw Signatures: Dispatcher [employer] EDMS Leann Blakely RN RN iw Ct Ureña, RN MILI db Odilia Patel PA-C PA-C sb4 Concha Zamarripa PAS PAS ts1
[2025-03-11 10:33] VITALS: TEMP 98.9
[2025-03-11 10:34] VITALS: BP 170/87; O2SAT 97
== END 2025-03-11 10:29 | disposition home or self-care (01) ==
LOC: ER 08:31
DX: J06.9 Acute upper respiratory infection, unspecified (principal); Z11.52 Encounter for screening for COVID-19
CPT/HCPCS: 36415; 71046; 87070; 87428; 99283